=== PATIENT | male | born 1980 | race Caucasian/White ===

== ENCOUNTER → 2023-07-23 | Outpatient (CLI) | payer OTHER ==
[~2023-07-23] VITALS: Ht 182.9 cm; Wt 106.1 kg
[~2023-07-23] MED LIST: ASPIRIN E.C. 8181 MG PO; LR 1,000 ML IV SCH
[2023-07-23 11:51] VITALS: BP 166/78; PULSE 77; TEMP 97.8
--- NOTE | 2023-07-23 12:21 | NUR ---
PT DID NOT HAVE THE PROCEDURE DONE HE WAS UNABLE TO DO IT WITHOUT ANESTHESIA. PT HAD BEEN CHEWING TOBACCO AND ANESTHESIA SAID HE HAD TO STOP CHEWING FOR 6 HOURS.
== END ==
LOC: COL.RAD 10:46
DX: M25.512 Pain in left shoulder (principal); M25.511 Pain in right shoulder
CPT/HCPCS: J2704

== ENCOUNTER → 2023-08-06 | Outpatient (CLI) | payer OTHER ==
[~2023-08-06] VITALS: Ht 182.9 cm; Wt 108.0 kg
[~2023-08-06] MED LIST changes: +Glycopyrrolate 0.2 MG/ML 1 ML VIAL ONE; +Lidocaine PF 2% (20 MG/ML) 5 ML VIAL ONE
[2023-08-06 06:58] VITALS: BP 129/79; PULSE 70; TEMP 98.1
[2023-08-06 09:25] VITALS: BP 143/89; PULSE 75
[2023-08-06 09:30] VITALS: BP 123/73; PULSE 69
[2023-08-06 09:45] VITALS: BP 115/70; PULSE 54
[2023-08-06 10:00] VITALS: BP 110/69; PULSE 52
== END ==
LOC: COL.RAD 06:43
DX: M19.011 Primary osteoarthritis, right shoulder (principal); M75.122 Complete rotator cuff tear or rupture of left shoulder, not specified as traumatic; M75.121 Complete rotator cuff tear or rupture of right shoulder, not specified as traumatic; M75.22 Bicipital tendinitis, left shoulder; M75.21 Bicipital tendinitis, right shoulder
CPT/HCPCS: J2704; J7120

== ENCOUNTER → 2024-02-24 | Outpatient (CLI) | payer OTHER ==
[~2024-02-24] VITALS: Ht 182.9 cm; Wt 107.1 kg
[~2024-02-24] MED LIST changes: -Glycopyrrolate 0.2 MG/ML 1 ML VIAL ONE; +Midazolam 2 MG/2 ML VIAL ONE; +fentaNYL 50 MCG/ML 2 ML VIAL ONE
[2024-02-24 08:00] VITALS: BP 125/77; PULSE 65; TEMP 98.4
[2024-02-24 09:25] VITALS: BP 115/73; PULSE 67
== END ==
LOC: COL.RAD 06:57
DX: M19.012 Primary osteoarthritis, left shoulder (principal); Z98.890 Other specified postprocedural states
CPT/HCPCS: J2250; J2704; J3010